=== PATIENT | female | born 1950 | race Caucasian/White ===

== ENCOUNTER 2024-10-08 13:07 | Emergency (ER) | payer OTHER, SELFPAY ==
[2024-10-08] VITALS (7 sets, daily range): BP systolic 147–167; BP diastolic 53–70; PULSE 8–96; RESP 16–28; TEMP 36.6–36.8; O2SAT 97–100
--- NOTE | ~2024-10-08 | XR_ITS ---
EXAMINATION: XR chest 2V DATE: 10/08/2024 15:50 INDICATION: Cough and congestion. TECHNIQUE: Frontal and lateral views of the chest were obtained. COMPARISON: Chest 2 views 06/01/2015 FINDINGS: There is no pneumonia, pleural effusion, or pneumothorax. The heart size is normal. IMPRESSION: 1. No acute cardiopulmonary disease. Reviewed, dictated and finalized at location A. MENTAL [employer]OR
--- NOTE | 2024-10-08 13:38 | ECG_ITS ---
Test Date: 2024-10-08 13:46:23 Measurements Intervals [place] Rate: 89 P: 55 NV: 143 QRS: 12 QRSD: 98 T: -36 QT: 368 QTc: 448 Interpretive Statements SINUS RHYTHM NONSPECIFIC ST & T-WAVE ABNORMALITY No previous ECG available for comparison Electronically Signed On 10-08-2024 21:48:35 PRESS MACHINE OPERATOR by Misha Rea M.D.
--- NOTE | 2024-10-08 13:41 | ED_ITS ---
HPI - Nausea/Vomiting/Diarrhea General Chief complaint: Nausea/Vomiting/Diarrhea Stated complaint: dizzy/N/V/D Time Seen by Provider: 10/08/24 13:41 Focused HPI: Patient is a 74 y/o female who presents to the ED via EMS with multiple complaints. Patient reports she was diagnosed with bronchitis on 09/28. She was prescribed a Z-Khanh by her primary care doctor which she finished on Tuesday. She has had persistent cough, congestion, shortness of breath since then. This morning around 2:00 a.m., she attempted to get up to go to the b athroom and developed dizziness, described as though the room is spinning. Has been diagnosed with vertigo in the past and states this feels similar. She has since developed N/V/D today. Unable to keep down any food or drink since then. Denies significant abdominal pain, fevers, chest pain. GENERAL: Ill/somewhat pale appearing, well-nourished, and in no acute distress. HEAD: Normocephalic, atraumatic. CHEST: Clear to auscultation. ?No respiratory distress. No significant focal lung sounds. HEART: Regular rate and rhythm.? NEURO: ?Alert and oriented x3. Patient screened in triage and initial orders placed.? ?Additional care and disposition to be based upon?diagnostic testing and treatment. Source: patient Mode of arrival: EMS Limitations: no limitations Related Data Allergies Allergy/AdvReac Type Severity Reaction Status Date / Time No Known Allergies Allergy Mild Verified 09/04/10 06:41 Course Vital Signs Vital signs: Vital Signs Temperature 98.2 F 10/08/24 13:30 Pulse Rate 88 10/08/24 13:30 Respiratory Rate 16 10/08/24 13:30 Blood Pressure 147/53 H 10/08/24 13:30 Pulse Oximetry 100 10/08/24 13:30 Oxygen Delivery Room Air 10/08/24 13:30 Temperature 98.2 F 10/08/24 13:30 Pulse Rate 88 10/08/24 13:30 Respiratory Rate 16 10/08/24 13:30 Blood Pressure 147/53 H 10/08/24 13:30 Pulse Oximetry 100 10/08/24 13:30 Oxygen Delivery Room Air 10/08/24 13:30 MDM - Nausea/Vomiting/Diarrhea MDM Narrative Medical decision making narrative: MSE by LONNY in triage. Discharge Plan Discharge Patient Language: Setswana Follow-up/Referrals: PHYSICIAN NOT ON STAFF,NONSTAFF [Primary Care Provider] -
[2024-10-08] MEDS: MECLIZINE HCL 25 MG TABLET PO (14:24)
[2024-10-08] MEDS: ONDANSETRON INJ 4 MG/2 ML VIAL IV PUSH (14:24)
--- NOTE | 2024-10-08 14:35 | PC.NURSE ---
Pt c/o dizziness that sudden onset with N/V/D. no emesis at this time
[2024-10-08 14:44] LABS: Hematocrit 37.6 % (37.0-47.0); Hemoglobin 12.7 g/dL (12.0-15.0); Mean Corpuscular HGB Conc 33.8 g/dl (32-36); Mean Corpuscular Hemoglobin 28.9 pg (26-34); Mean Corpuscular Volume 85.6 fl (80-100); Mean Platelet Volume 9.9 fl (7.4-10.4); Platelet Count Result 414 k/mm3 (150-375); Red Blood Count 4.39 M/mm3 (4.2-5.4); Red Cell Distribution Width 12.8 % (11.5-14.5); White Blood Count 10.2 K/mm3 (4.5-10.0)
[2024-10-08 14:53] LABS: Alanine Aminotransferase 17 U/L (6-35); Albumin Level 4.1 g/dL (3.5-5.1); Alkaline Phosphatase 86 U/L (38-126); Anion Gap 8 mmol/L (4-12); Aspartate Amino Transferase 28 U/L (14-36); Bilirubin,Total 0.8 mg/dL (0.2-1.3); Blood Urea Nitrogen 10 mg/dL (7-17); Calcium 9.5 mg/dL (8.4-10.2); Carbon Dioxide 22 mmol/L (22-30); Chloride 105 mmol/L (98-107); Estimated CRCL calculation 56 ml/min; Estimated Glomerular Filt Rate > 60; Glucose 157 mg/dL (65-110); Magnesium 1.8 mg/dL (1.6-2.3); Potassium 3.9 mmol/L (3.4-5.0); Sodium 135 mmol/L (137-145)
[2024-10-08 15:05] LABS: Troponin I < 0.012 ng/mL (0.000-0.034)
[2024-10-08 15:07] LABS: INR 1.1; Prothrombin Time 14.7 Seconds (11.1-14.7)
[2024-10-08 15:08] LABS: Partial Thromboplastin Time 29.8 Seconds (22.3-36.8)
[2024-10-08 15:20] LABS: Influenza A QL RT-PCR Negative (Negative); Influenza B QL RT-PCR Negative (Negative); RSV RNA, RT-PCR Negative (Negative); SARS-CoV-2 RNA PCR Negative (Negative)
[2024-10-08 15:26] LABS: Band Neutrophils Percent 1 % (0-6); Lymphocytes Absolute Manual 0.91 K/mm3 (1.1-4.5); Neutrophils Absolute Manual 9.28 K/mm3 (1.7-7.2); Neutrophils Percent Manual 90 % (46-73); Platelet Estimate Increased (Adequate); Schistocytes None Seen; Total Cells Counted 100
[2024-10-08 15:27] LABS: Atypical Lymphocytes Present
--- NOTE | 2024-10-08 17:57 | ED_ITS ---
HPI - Nausea/Vomiting/Diarrhea General Chief complaint: Nausea/Vomiting/Diarrhea Stated complaint: dizzy/N/V/D Time Seen by Provider: 10/08/24 13:41 History of Present Illness HPI Narrative: 74-year-old female presents to the emergency department with neighbor at bedside with multiple medical complaints. Patient presents EMS from home. States yesterday she was feeling in her normal state of health, cleaned her house, watched football and went to bed. States that 2:00 a.m. she got up to go to the bathroom when she began to feel dizzy and lightheaded, states it felt like the room was spinning. States she fell to the ground but did not hit her head or lose consciousness. She denies injuries from the fall. She then proceeded to have an episode of nausea and vomiting as well as diarrhea. She states the symptoms persisted so she contacted her neighbor who came over to her house around 3:00 a.m.. Patient states in the morning she contacted her PCP and was advised to go to the ED for further evaluation. Patient states she has a history of vertigo for which he takes Dramamine. States she has been taking her Dramamine with improvement, however was unable to keep down the Dramamine today due to vomiting. No vision changes, focal numbness or weakness. Denies chest pain and shortness of breath. States she recently finished a Z-Khanh from her PCP that was prescribed on 09/28/2024 for bronchitis. States her cough and congestion have resolved but she does have some postnasal drainage which causes her to be nauseous. Upon my evaluation the patient states she is no longer dizzy or lightheaded. Her only complaints are that she feels weak, tired and she has sensitivity to light or noise. She denies headache. When asked with the sensitivities to light and noise cause, she states that she feels anxious. She reports her siblings and mother have had massive strokes, her sister's anniversary was September 30. She states the state of the rolled causes or lot of stress and anxiety. She lives at home by herself. Related Data Allergies Allergy/AdvReac Type Severity Reaction Status Date / Time No Known Allergies Allergy Mild Verified 10/08/24 14:23 Review of Systems 2 Review of Systems: All systems reviewed & are unremarkable except as noted in HPI and below Exam 2 Narrative: GENERAL: Well-appearing, well-nourished, and in no acute distress. Anxious, tearful HEAD: Normocephalic, atraumatic. EYES: PERRLA and EOMI. No nystagmus ENT: Nares clear, no rhinorrhea or epistaxis. Mucous membranes dry. NECK: Supple. CHEST: Clear to auscultation. No respiratory distress. HEART: Regular rate and rhythm. No murmur heard. Normal peripheral pulses. ABDOMEN: Soft, nontender, nondistended, normal active bowel sounds. EXTREMITIES: Normal range of motion. No edema. SKIN: Warm, dry, no rash. NEURO: No focal deficits. Alert and oriented x3. Moving all extremities spontaneously. Cranial nerves 2-12 intact Course Vital Signs Vital signs: Vital Signs Temperature 98.2 F 10/08/24 13:30 Pulse Rate 88 10/08/24 13:30 Respiratory Rate 16 10/08/24 13:30 Blood Pressure 147/53 H 10/08/24 13:30 Pulse Oximetry 100 10/08/24 13:30 Oxygen Delivery Room Air 10/08/24 13:30 Temperature 97.8 F 10/08/24 19:55 Pulse Rate 89 10/08/24 19:55 Respiratory Rate 21 H 10/08/24 19:55 Blood Pressure 167/70 H 10/08/24 19:55 Pulse Oximetry 98 10/08/24 19:55 Oxygen Delivery Room Air 10/08/24 13:30 MDM - Nausea/Vomiting/Diarrhea MDM Narrative Medical decision making narrative: 74-year-old female presents to the emergency department with fever at bedside for multiple medical complaints including episode of lightheadedness/vertigo this morning at 2:00 a.m. which caused her to fall. She denies head injury, LOC, injuries acquired. She no longer is dizzy or lightheaded. Also reporting N/V/D since 2:00 a.m. this morning, fatigue, generalized weakness and anxiety. See HPI for further history. Triage vitals are stable. She is afebrile and nontoxic appearing resting comfortably in the exam bed but she does appear anxious and is tearful. Labs with mild leukocytosis of 10.2, no anemia. Chemistries are unremarkable. Viral swabs are negative. Mag normal. Chest x-ray shows no acute cardiopulmonary findings. EKG was sinus rhythm, normal MA interval, normal QRS duration, QTC, no ischemic changes. Troponin detectable. Patient received IV fluids and Ativan with significant improvement. States she feels much better. She is tolerating po intake and ambulating without dizziness or ataxia. Feel she is safe to be discharged home. Will provide hydroxyzine to take p.r.n. for anxiety as well as Zofran p.r.n. for nausea. Bridge increased intake and follow-up with PCP. Return precautions discussed. She and her neighbor are agreeable to plan verbalized understanding. Discharged in stable condition Lab Data 10/08/24 14:29 10/08/24 14:29 Labs: Lab Results 10/08/24 Range/Units 14:29 WBC 10.2 H (4.5-10.0) K/mm3 RBC 4.39 (4.2-5.4) M/mm3 Hgb 12.7 (12.0-15.0) g/dL Hct 37.6 (37.0-47.0) % MCV 85.6 (80-100) fl MCH 28.9 (26-34) pg MCHC 33.8 (32-36) g/dl RDW 12.8 (11.5-14.5) % Plt Count 414 H (150-375) k/mm3 MPV 9.9 (7.4-10.4) fl Immature Gran % (Auto) Not Reportable Neut % (Auto) Not Reportable Lymph % (Auto) Not Reportable [place] % (Auto) Not Reportable Eos % (Auto) Not Reportable Baso % (Auto) Not Reportable Lymph # (Auto) Not Reportable [place] # (Auto) Not Reportable Eos # (Auto) Not Reportable Baso # (Auto) Not Reportable Abs Immat Gran (auto) Not Reportable Absolute Neuts (auto) Not Reportable Absolute Nucleated RBC Not Reportable Total Counted 100 Neutrophils % (Manual) 90 H (46-73) % Band Neutrophils % 1 (0-6) % Lymphocytes % (Manual) 9.0 L (18-44) % Nucleated RBC % Not Reportable Abs Neuts (Manual) 9.28 H (1.7-7.2) K/mm3 Abs Lymphs (Manual) 0.91 L (1.1-4.5) K/mm3 Atypical Lymphocytes Present Platelet Estimate Increased (Adequate) Schistocytes None seen PT 14.7 (11.1-14.7) Seconds INR 1.1 APTT 29.8 (22.3-36.8) Seconds Sodium 135 L (137-145) mmol/L Potassium 3.9 (3.4-5.0) mmol/L Chloride 105 (98-107) mmol/L Carbon Dioxide 22 (22-30) mmol/L Anion Gap 8 (4-12) mmol/L BUN 10 (7-17) mg/dL Creatinine 0.59 L (0.7-1.0) mg/dL Estim Creat Clear Calc 56 ml/min Estimated GFR > 60 (59 - ) Glucose 157 H (65-110) mg/dL Calcium 9.5 (8.4-10.2) mg/dL Magnesium 1.8 (1.6-2.3) mg/dL Total Bilirubin 0.8 (0.2-1.3) mg/dL AST 28 (14-36) U/L ALT 17 (6-35) U/L Alkaline Phosphatase 86 (38-126) U/L Troponin I < 0.012 (0.000-0.034) ng/mL Total Protein 7.0 (6.3-8.2) g/dL Albumin 4.1 (3.5-5.1) g/dL Influenza A (RT-PCR) Negative (Negative) Influenza B (RT-PCR) Negative (Negative) RSV (RT-PCR) Negative (Negative) SARS-CoV-2 RNA (RT-PCR) Negative (Negative) Discharge Plan Discharge Clinical Impression: Gastroenteritis, Anxiety state Patient Disposition: Home, Self-Care Condition: Stable Instructions: Antibiotic Form, Acute Nausea and Vomiting (ED), Anxiety (ED) Additional Instructions: Drink plenty of fluids including water, Gatorade and Pedialyte. Take hydroxyzine as needed for anxiety and ondansetron as needed for nausea. Follow- up closely with her primary care provider. Return to the emergency department if you develop chest pain shortness of breath vision changes, focal numbness or weakness, you are unable to tolerate food or fluids, or other concerning symptoms. Patient Language: Amharic Prescriptions: New hydroxyzine pamoate 25 mg capsule 25 mg PO BID PRN (Reason: anxiety) Qty: 14 0RF ondansetron 4 mg tablet,disintegrating 4 mg PO Q8H Qty: 14 0RF Follow-up/Referrals: PHYSICIAN NOT ON STAFF,NONSTAFF [Primary Care Provider] -
[2024-10-08] MEDS: SODIUM CHLORIDE 0.9% IV 1,000 ML 999 ML IV CONT (18:16)
[2024-10-08] MEDS: LORazepam INJ (*CRX) 2 MG/ML VIAL 0.5 MG IV PUSH (18:18)
--- NOTE | 2024-10-08 19:38 | PC.NURSE ---
Patient tolerated PO challenge, Reports feeling better , ambulatory to bathroom with slow steady gait
== END 2024-10-08 20:09 | disposition home or self-care (01) ==
PROVIDERS: Physician Assistant; Emergency Provider Physician Assistant
DX: K52.9 Noninfective gastroenteritis and colitis, unspecified (principal); F41.9 Anxiety disorder, unspecified; Z20.822 Contact with and (suspected) exposure to COVID-19
CPT/HCPCS: 36415; 71046; 80053; 83735; 84484; 85025; 85610; 85730; 87637; 93005; 96361; 96374; 96375; 99284; A9270; J2060; J2405; J7030